=== PATIENT | female | born 1960 | race Caucasian/White ===

== ENCOUNTER → 2020-08-22 12:14 | Outpatient (CLI) | payer OTHER, SELFPAY ==
--- NOTE | ~2020-08-22 | MM_ITS ---
EXAMINATION: MM diagnostic may BI w meenu HISTORY: Status post right partial mastectomy for breast cancer TECHNIQUE: Bilateral ML, MLO and craniocaudal full field and right spot 3-D tomosynthesis images were performed and synthetic 2-D images were generated. CAD analysis was submitted and interpreted. COMPARISON: 05/11/2018 bilateral Limited ultrasound 04/28/2018bilateral breast MRI 04/17/2018 diagnostic right digital mammogram and limited right breast ultrasound 04/02/2018 bilateral digital screening BREAST PARENCHYMAL COMPOSITION: There are scattered areas of fibroglandular density. FINDINGS: There is postoperative scarring and overlying retraction in the upper outer quadrant of the right breast. Otherwise no interval suspicious mass or new architectural distortion or retraction or skin thickenin g is of either breast noted. There are scattered benign calcifications. IMPRESSION: 1. Status post right partial mastectomy for breast cancer; probable benign postoperative scarring of the upper outer quadrant of the right breast 2. 6 month follow-up diagnostic right mammogram is recommended. BI-RADS category 3, probably benign findings. Reviewed, dictated and finalized at location A. ING MACHINE OPERATOR IMPRESSION: 1. Status post right partial mastectomy for breast cancer; probable benign post operative scarring of the upper outer quadrant of the right breast 2. 6 month follow-up diagnostic right mammogram is recommended. BI-RADS category 3, probably benign findings.
== END ==
DX: C50.411 Malignant neoplasm of upper-outer quadrant of right female breast (principal)
CPT/HCPCS: 77062; 77066; G0279

== ENCOUNTER 2020-09-03 11:30 | Emergency (ER) | payer OTHER, SELFPAY ==
--- NOTE | 2020-09-03 11:38 | ED.FEMALEGU ---
HPI - Female Genitourinary General Chief complaint: Urogenital-Female Stated complaint: UTI Time Seen by Provider: 09/03/20 11:45 Source: patient and RN notes reviewed Mode of arrival: ambulatory Limitations: no limitations History of Present Illness HPI Narrative: 60-year-old female presents with concern for urinary tract infection. Reports symptoms started on Friday with dysuria, suprapubic pressure. Denies frequency, urgency, hematuria, flank pain, nausea, vomiting, diarrhea, fever. Reports mild left low back pain. Denies abnormal vaginal bleeding or discharge MD elicited complaint: UTI Related Data Home Medications Medication Instructions Recorded Confirmed alprazolam 0.25 mg PO DIRECTED 09/03/20 09/03/20 zolpidem 5 mg PO DAILY 09/03/20 09/03/20 Allergies Allergy/AdvReac Type Severity Reaction Status Date / Time No Known Allergies Allergy Unverified 09/03/20 11:38 Review of Systems Review of Systems: Narrative: CONSTITUTIONAL: Reports malaise. Denies chills, sweats, or fever. CARDIOVASCULAR: Denies chest pain, palpitations, or edema. RESPIRATORY: Denies cough or dyspnea. GASTROINTESTINAL: Denies abdominal pain, nausea, vomiting, diarrhea, bloody, or mucous stools. GENITOURINARY: Denies dysuria, suprapubic pressure. Denies frequency, urgency, flank pain, hematuria. MUSCULOSKELETAL: Reports mild left low back pain. Denies myalgia. NEUROLOGIC: Denies headache. All systems reviewed & are unremarkable except as noted in HPI and below PMFSH Comments At time of signature, agree with nursing past medical, surgical, social and family history. There is no relevant family history pertinent to the presenting complaint Exam Narrative: Exam Narrative: GENERAL: Well-appearing, well-nourished, and in no acute distress. HEAD: Normocephalic. EYES: PERRLA, conjunctivae clear. NECK: Supple. No lymphadenopathy CHEST: Clear to auscultation. No respiratory distress. HEART: Regular rate and rhythm. ABDOMEN: Soft, nontender upon palpation, nondistended, normal active bowel sounds, no palpable or pulsatile masses, no guarding. No CVA tenderness SKIN: Warm, dry, no rash. NEURO: Alert and oriented x3. PSYCH: Normal mood and affect Course Course Emergency Course: Patient is aware of diagnosis, understands and agrees to treatment plan. Anticipatory guidance given. Patient agrees to follow-up as directed and is aware of reasons to seek care at the emergency department. Portions of this record may have been created with voice recognition software Vital Signs Vital signs: Vital Signs Temperature 97.6 F 09/03/20 11:45 Pulse Rate 63 09/03/20 11:45 Respiratory Rate 16 09/03/20 11:45 Blood Pressure 165/91 H 09/03/20 11:45 Pulse Oximetry 100 09/03/20 11:45 Temperature 97.6 F 09/03/20 11:45 Pulse Rate 63 09/03/20 11:45 Respiratory Rate 16 09/03/20 11:45 Blood Pressure 165/91 H 09/03/20 11:45 Pulse Oximetry 100 09/03/20 11:45 Reviewed. Patient has history of hypertension MDM - Female Genitourinary MDM Narrative Medical decision making narrative: Exam findings and UA show no acute concerns or changes; patient is non-toxic appearing and is in no distress. Patient is appropriate for outpatient treatment and follow-up. Lab Data Attestation: I reviewed the patient's lab results. Labs: Urine Glucose Negative Reference Range: Negative Urine Bilirubin Negative Reference Range: Negative Urine Ketone Negative Reference Range: Negative Urine Specific [place] 1.010 Reference Range:1.001-1.035 Urine Blood 2+ Reference Range: Negative * *
[2020-09-03 11:45] VITALS: BP 165/91; PULSE 63; RESP 16; TEMP 36.4; O2SAT 100
== END 2020-09-03 11:56 | disposition home or self-care (01) ==
PROVIDERS: Emergency Provider Nurse Practitioner
DX: N39.0 Urinary tract infection, site not specified (principal); F41.9 Anxiety disorder, unspecified; Z85.3 Personal history of malignant neoplasm of breast
CPT/HCPCS: 81003; 87077; 87086; 87088; 87186; 99213; G0463

== ENCOUNTER → 2021-03-05 08:08 | Outpatient (CLI) | payer OTHER, SELFPAY ==
--- NOTE | ~2021-03-05 | MM_ITS ---
EXAMINATION: MM diagnostic may RT w meenu HISTORY: Right breast cancer TECHNIQUE: Craniocaudal, mediolateral, and mediolateral oblique 3-D tomosynthesis images of the right breast were performed and synthetic 2-D images were generated. CAD analysis was submitted and interp reted. COMPARISON: 08/22/2020, 07/23/2019, 07/10/2018, 04/17/2018, 04/06/2018 BREAST PARENCHYMAL COMPOSITION: There are scattered areas of fibroglandular density. FINDINGS: There are stable lumpectomy changes in the posterior third of the upper outer quadrant of t he breast. There is no evidence of suspicious mass, calcification, or architectural distortion to sug gest malignancy. There has been no suspicious interval change. IMPRESSION: 1. No mammographic evidence of malignancy. 2. Recommend routine screening mammography in one year. BI-RADS Category 2: Benign finding(s). Reviewed, dictated and finalized at location A.
== END ==
PROVIDERS: PCP Internal Medicine; Visit Provider Physician Assistant Medical
DX: C50.411 Malignant neoplasm of upper-outer quadrant of right female breast (principal)
CPT/HCPCS: 77061; 77065; G0279

== ENCOUNTER → 2021-11-27 16:02 | Outpatient (CLI) | payer OTHER, SELFPAY ==
--- NOTE | ~2021-11-27 | MM_ITS ---
EXAMINATION: MM screening [facility] BI w meenu HISTORY: Screening mammogram, history of right breast cancer TECHNIQUE: Craniocaudal and mediolateral oblique 3-D tomosynthesis images were obtained and synthetic 2-D images were generated. CAD analysis was submitted and interpreted. COMPARISON: 03/05/2021, 08/22/2020, 07/23/2019 BREAST PARENCHYMAL COMPOSITION: There are scattered areas of fibroglandular density. FINDINGS: There are stable lumpectomy changes in the upper outer quadrant of the right breast. There is also a stable mass of the inner left breast. There is no suspicious mass, calcification, or teri ectural distortion to suggest malignancy in either breast. There has been no suspicious interval stev[place] [facility]. IMPRESSION: 1. No mammographic evidence of malignancy. 2. Recommend routine screening mammography in one year. BI-RADS Category 2: Benign finding(s). Reviewed, dictated and finalized at location A.
== END ==
PROVIDERS: PCP Internal Medicine; Visit Provider Physician Assistant Medical
DX: Z12.31 Encounter for screening mammogram for malignant neoplasm of breast (principal)
CPT/HCPCS: 77063; 77067

== ENCOUNTER → 2022-12-18 16:56 | Outpatient (CLI) | payer OTHER, SELFPAY ==
--- NOTE | ~2022-12-18 | MM_ITS ---
EXAMINATION: MM screening [facility] BI w meenu HISTORY: Screening mammogram. Prior history of right breast lumpectomy and radiation therapy. TECHNIQUE: Craniocaudal and mediolateral oblique 3-D tomosynthesis images were obtained and synthetic 2-D images were generated. CAD analysis was submitted and interpreted. COMPARISON: 11/27/2021, 03/05/2021, 08/22/2020, 07/23/2019, 07/10/2018 BREAST PARENCHYMAL COMPOSITION:There are scattered areas of fibroglandular density. FINDINGS: There is stable post lumpectomy changes with dystrophic calcification at the upper, outer r ight breast. No suspicious mass, calcification, or architectural distortion are identified in either breast to suggest malignancy. There has been no suspicious interval change. IMPRESSION: No mammographic evidence of malignancy. Stable postlumpectomy change at the upper, outer right breast. Recommend routine screening mammography in one year. BI-RADS Category 2: Benign finding(s). Reviewed, dictated and finalized at [facility].
== END ==
PROVIDERS: PCP Physician Assistant Medical; Visit Provider Physician Assistant Medical
DX: Z12.31 Encounter for screening mammogram for malignant neoplasm of breast (principal)
CPT/HCPCS: 77063; 77067

== ENCOUNTER 2024-02-13 12:08 | Outpatient (CLI) | payer OTHER, SELFPAY ==
--- NOTE | ~2024-02-13 | MM_ITS ---
EXAMINATION: MM screening [facility] BI w meenu HISTORY: Screening TECHNIQUE: Craniocaudal and mediolateral oblique 3-D tomosynthesis images were obtained and synthetic 2-D images were generated. CAD analysis was submitted and interpreted. COMPARISON: 07/10/2018 BREAST PARENCHYMAL COMPOSITION: There are scattered areas of fibroglandular density. FINDINGS: Stable architectural distortion upper outer quadrant of the right breast, consistent with p revious lumpectomy site for breast cancer. There is no evidence of suspicious mass, calcification, or architectural distortion to suggest malignancy in either breast. There has been no suspicious interv al change. IMPRESSION: 1. No mammographic evidence of malignancy. 2. Recommend routine screening mammography in one year. BI-RADS CATEGORY 2 - BENIGN FINDINGS Reviewed, dictated and finalized at location B.
== END 2024-02-13 12:09 ==
LOC: MICIMG 12:09
PROVIDERS: PCP Physician Assistant Medical; Visit Provider Physician Assistant Medical
DX: Z12.31 Encounter for screening mammogram for malignant neoplasm of breast (principal)
CPT/HCPCS: 77063; 77067

== ENCOUNTER 2024-04-03 13:48 | Emergency (ER) | payer OTHER, SELFPAY ==
--- NOTE | ~2024-04-03 | XR_ITS ---
XR ankle RT min 3V DATE: 04/03/2024 14:06 INDICATION: Fall. Pain. TECHNIQUE: 4 views COMPARISON: None FINDINGS: Virtually nondisplaced linear oblique fracture of the distal fibular diametaphysis. No other fracture or dislocation. The ankle mortise is intact. IMPRESSION: Virtually nondisplaced linear oblique fracture of the distal fibular diametaphysis Reviewed, dictated and finalized at location A. IMPRESSION: Virtually nondisplaced linear oblique fracture of the distal fibula r diametaphysis
[2024-04-03 13:51] VITALS: BP 151/86; PULSE 75; RESP 18; TEMP 36.8; O2SAT 98
--- NOTE | 2024-04-03 14:58 | ED.FALL ---
HPI - Fall General Chief Complaint: Fall Stated Complaint: fall Time Seen by Provider: 04/03/24 14:14 History of Present Illness HPI Narrative: Patient is a 63-year-old female who presents to the emergency department this afternoon complaining of right ankle pain. Patient states that she missed a step and rolled her right ankle as she was falling. Patient denies hitting her head and denies any blood thinner use. States that she was able to get back up and ambulate with a little bit of assistance. Patient complains of pain along her right lateral malleoli. Denies any numbness and/or tingling. No additional symptoms or concerns at this time. Related Data Home Medications Medication Instructions Recorded Confirmed alprazolam 0.25 mg tablet 0.25 mg PO DIRECTED 09/03/20 09/03/20 zolpidem 5 mg tablet 5 mg PO DAILY 09/03/20 09/03/20 Allergies Allergy/AdvReac Type Severity Reaction Status Date / Time No Known Allergies Allergy Verified 04/03/24 14:56 Review of Systems Review of Systems: All systems are reviewed and are negative unless stated otherwise in the HPI. Exam Narrative: General: Alert, awake, afebrile, in no acute distress. HEENT: PERRL, no rhinorrhea, no post nasal drip, oropharynx clear. Cardiovascular: Regular rate and rhythm, no murmurs, rubs or gallops, no peripheral edema. Respiratory: Clear to auscultation bilaterally, no tachypnea, no wheezing, no rhonchi, no rubs, no respiratory distress. Abdomen: Soft, nontender, nondistended, no rebound, no guarding, no peritoneal signs. Musculoskeletal: Right ankle swelling and tenderness to palpation noted along the right lateral malleolus, no tenderness to palpation mid torso, no tenderness to palpation over the midfoot, no tenderness to palpation over the proximal fibula, intact DP pulse, unable to palpate PT pulses secondary to swelling. Skin: No rashes or petechia, no signs of infection. Neurological: Alert and oriented to person, place, and time. Follows all commands. No focal deficits, speech is clear and fluent. Course Vital Signs Vital signs: Vital Signs Temperature 98.3 F 04/03/24 13:51 Pulse Rate 75 04/03/24 13:51 Respiratory Rate 18 09/21/24 13:51 Blood Pressure 151/86 H 04/03/24 13:51 Pulse Oximetry 98 04/03/24 13:51 Temperature 98.4 F 04/03/24 16:00 Pulse Rate 82 04/03/24 16:00 Respiratory Rate 16 04/03/24 16:00 Blood Pressure 139/69 04/03/24 16:00 Pulse Oximetry 98 04/03/24 16:00 MDM - Fall MDM Narrative Medical decision making narrative: The patient was evaluated by myself in the emergency department. History is obtained from patient who is an independent historian and physical exam was performed. External medical records were reviewed at this time. Patient was administered an oral [place] 7.5-325 mg for pain. Imaging studies obtained included right ankle x-ray which was independently interpreted by me revealing a nondisplaced linear oblique fracture of the distal fibular diametaphysis, which is pending final radiology interpretation. At this time patient was informed of these findings and she will be placed on a splint to immobilize her right ankle and that she will be provided with crutches for nonweightbearing. Patient was placed on posterior short leg with stirrup. Differential diagnosis considerations include fractures, dislocation, musculoskeletal strain. Comorbidities impacting this visit include none. I have evaluated and discussed social determinants of health with the patient that could potentially impact subsequent diagnosis and treatment plans. On repeat assessment of the patient, reevaluation revealed that the patient is doing well and is in no acute distress. Patient symptoms have improved since she arrived to our emergency department. Repeat vital signs were all reviewed and noted to be stable. Differential diagnosis and treatment plan were discussed with the patient
[2024-04-03] MEDS: HYDROcodone/acetaminophen (*CRX) 7.5-325 MG TABLET 1 TAB PO (15:23)
[2024-04-03 16:00] VITALS: BP 139/69; PULSE 82; RESP 16; TEMP 36.9; O2SAT 98
== END 2024-04-03 16:02 | disposition home or self-care (01) ==
PROVIDERS: Emergency Provider Emergency Medicine; PCP Internal Medicine
DX: S89.391A Other physeal fracture of lower end of right fibula, initial encounter for closed fracture (principal); W10.9XXA Fall (on) (from) unspecified stairs and steps, initial encounter; X50.9XXA Other and unspecified overexertion or strenuous movements or postures, initial encounter
CPT/HCPCS: 29515; 73610; 99284; A9270

== ENCOUNTER 2024-04-26 23:46 | Emergency (ER) | payer OTHER, SELFPAY ==
--- NOTE | ~2024-04-26 | XR_ITS ---
Portable chest x-ray Comparison: None Clinical History: Chest pain Findings: Possible minimal right pleural effusion. Possible mild hazy opacity right upper lobe. Car diomediastinal silhouette is unremarkable. Bones and soft tissues are unremarkable. Impression: Probable minimal right pleural effusion. Questionable mild hazy opacity right upper lobe. Subtle pneumonia is a consideration. Reviewed, dictated and finalized at [facility]. Impression: Probable minimal right pleural effusion. Questionable mild hazy opacity right upper lobe. Subtle pneumonia is a consider ation.
--- NOTE | ~2024-04-26 | CT_ITS ---
Clinical Indication: Pulmonary embolus CT Scan of the Chest with Contrast: Technique: Contiguous sections were acquired throughout the chest after intravenous administration of 100 cc of Omnipaque 350. Dose reduction technique was used on this scan by utilizing automated expos ure control and iterative reconstruction technique. The dose-length product (DLP) was 624.41 mGy-cm. Findings: There is no evidence of any significant mediastinal, hilar or axillary lymphadenopathy. There is a ve ry large pulmonary embolus within the right main pulmonary artery, extending into the right lobar lev el pulmonary artery as well as segmental branches. Sagittal embolus extends across the main pulmonary bifurcation into the left main pulmonary artery, with extension into the left lower lobar pulmonary artery and segmental branches. There is additional extension to the left upper lobar pulmonary artery and segmental branches. There is reversal of the LV-RV ratio, suggestive of right heart strain. Ther e is no evidence of aortic dissection or aneurysm. No pericardial effusion. Small right pleural effusion present. No left pleural effusion. There is area of groundglass consolidation the right lower lobe. Left lung essentially clear. Images through the upper abdomen reveal no abnormalities. Impression: Extensive saddle pulmonary embolus, as detailed above. Findings compatible with associated right hear t strain. Area of groundglass consolidation right lower lobe, likely representing pulmonary infarct given the a nhan findings. Correlate for pneumonia. Small right pleural effusion. Reviewed, dictated and finalized at [facility]. Impression: Extensive saddle pulmonary embolus, as detailed above. Findings compatible with associated right heart strain. Area of groundglass consolidation right lower lobe, likely representing pulmona ry infarct given the above findings. Correlate for pneumonia. Small right pleural effusion.
[2024-04-27] VITALS: BP 143/91; PULSE 91; RESP 14; TEMP 36.3; O2SAT 100
--- NOTE | 2024-04-27 00:04 | ED.GENADULT ---
[facility] - General Adult General Chief complaint: Unspecified Stated complaint: rib pain, shoulder pain Time Seen by Provider: 04/26/24 23:58 History of Present Illness HPI narrative: 63-year-old female with a past medical history significant for breast cancer status post lumpectomy and chemotherapy. In remission since 2018. 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 She recently fractured her ankle several weeks prior and is being treated conservatively in outpatient therapy with her orthopedic surgeon Dr. Palmer. She presents to the emergency department today with 2 days of sharp right-sided chest pain underneath her breast going towards her back. She states that her state deep breath. No left-sided chest discomfort, nausea, vomiting, fever, chills, abdominal pain, headache, vision changes. She was otherwise in her normal state of health and has been more sedentary lately secondary to the broken ankle. She has been using crutches for ambulation and thinks that could be related to overuse of her upper extremity and crutches under armpit. She denies any paresthesias in the arms or legs. Endorses some swelling in the right ankle that is improved from when she fractured it. Related Data Home Medications Medication Instructions Recorded Confirmed alprazolam 0.25 mg tablet 0.25 mg PO DIRECTED 09/03/20 04/05/24 zolpidem 5 mg tablet 5 mg PO DAILY 09/03/20 04/05/24 Allergies Allergy/AdvReac Type Severity Reaction Status Date / Time No Known Allergies Allergy Verified 04/05/24 15:07 Review of Systems Review of Systems: as reviewed above in [facility] Social History Social History Smoking status: Never smoker Exam Narrative: GENERAL: [Well-appearing, well-nourished, and in no acute distress.] HEAD: [Normocephalic, atraumatic.] EYES: [PERRLA and EOMI.] ENT: Nares clear, no rhinorrhea or epistaxis. Mucous membranes moist. NECK: Supple. CHEST: [Clear to auscultation. No respiratory distress.] HEART: [Regular rate and rhythm]. No murmur heard. [Normal peripheral pulses.] ABDOMEN: [Soft, nondistended], [nontender], [No rigidity or guarding] EXTREMITIES: cam boot in place into the right lower extremity with some mild swelling around the knee but no pitting edema. Tenderness to palpation is reproducible in the chest wall especially underneath the right breast but no step-off deformities or lesions. No midline back pain. SKIN: Warm, dry, no rash. NEURO: [No focal deficits]. Alert and oriented [x3.] PSYCH: [Normal mood and affect.] Course Vital Signs Vital signs: Vital Signs Temperature 36.3 C L 04/27/24 00:00 Pulse Rate 91 04/27/24 00:00 Respiratory Rate 14 04/27/24 00:00 Blood Pressure 143/91 H 04/27/24 00:00 Pulse Oximetry 100 04/27/24 00:00 Temperature 36.3 C L 04/27/24 00:00 Pulse Rate 74 04/27/24 00:14 Respiratory Rate 14 04/27/24 00:00 Blood Pressure 143/91 H 04/27/24 00:00 Pulse Oximetry 93 04/27/24 00:14 Oxygen Delivery Room Air 04/27/24 00:14 Medical Decision Making [facility] Narrative Medical decision making narrative: 63-year-old female presenting to the emergency depart with right-sided chest pain that starts underneath her breast and radiates towards her back. Was nontraumatic in nature. She has significant history including breast cancer in remission, history of super fetus venous thrombosis, recent fracture right ankle without any operative repair. She does meet wells criteria for high risk DVT and PE features. Cardiac etiology is less likely but still of concern. Low risk for infectious pathology such as pneumonia or spontaneous pneumothorax. Workup was initiated including x-ray, EKG, cardiac workup with troponins and a dimer. She was treated with Toradol for analgesia. Will re-evaluate after symptom control and laboratory assessment. patient's labo
--- NOTE | 2024-04-27 00:08 | ECG_ITS ---
Test Date: 2024-04-27 00:08:26 Measurements Intervals [place] Rate: 75 P: 66 ND: 149 QRS: -20 QRSD: 90 T: 18 QT: 389 QTc: 434 Interpretive Statements SINUS RHYTHM No previous ECG available for comparison Electronically Signed On 04-27-2024 12:21:43 CDT by Samira Brumfield M.D.
[2024-04-27] MEDS: KETOROLAC 30 MG/ML VIAL (*BKC) IV PUSH (00:09)
[2024-04-27 00:14] VITALS: PULSE 74; O2SAT 93
[2024-04-27 00:16] LABS: Basophils Percent Auto 0.3 % (0.2-1.2); Eosinophils Absolute Auto 0.1 K/mm3 (0-0.3); Hematocrit 41.8 % (37.0-47.0); Hemoglobin 14.1 g/dL (12.0-15.0); Immature Granulocyte Absolute 0.04 K/mm3 (0.00-0.031); Immature Granulocyte Percent A 0.4 % (0-0.5); Lymphocytes Absolute Auto 1.65 K/mm3 (0.9-3.2); Lymphocytes Percent Auto 16.7 % (18.3-44.2); Mean Corpuscular HGB Conc 33.7 g/dl (32-36); Mean Corpuscular Hemoglobin 30.9 pg (26-34); Mean Corpuscular Volume 91.7 fl (80-100); Mean Platelet Volume 10.1 fl (7.4-10.4); Monocytes Absolute Auto 0.7 K/mm3 (0.1-0.6); Monocytes Percent Auto 7.5 % (2.6-8.5); Neutrophils Absolute Auto 7.3 K/mm3 (1.3-6.7); Neutrophils Percent Auto 74.1 % (45.5-73.1); Platelet Count Result 248 k/mm3 (150-375); Red Blood Count 4.56 M/mm3 (4.2-5.4); Red Cell Distribution Width 12.5 % (11.5-14.5); White Blood Count 9.9 K/mm3 (4.5-10.0)
[2024-04-27 00:25] LABS: Alanine Aminotransferase 14 U/L (6-35); Albumin Level 4.5 g/dL (3.5-5.1); Alkaline Phosphatase 115 U/L (38-126); Anion Gap 12 mmol/L (4-12); Aspartate Amino Transferase 24 U/L (14-36); Bilirubin,Total 1.3 mg/dL (0.2-1.3); Blood Urea Nitrogen 9 mg/dL (7-17); Calcium 9.5 mg/dL (8.4-10.2); Carbon Dioxide 26 mmol/L (22-30); Chloride 100 mmol/L (98-107); Estimated CRCL calculation 52 ml/min; Estimated Glomerular Filt Rate 50; Glucose 135 mg/dL (65-110); Potassium 3.7 mmol/L (3.4-5.0); Sodium 138 mmol/L (137-145)
[2024-04-27 00:28] LABS: INR 1.1; Prothrombin Time 14.1 Seconds (11.1-14.7)
[2024-04-27 00:37] LABS: Troponin I < 0.012 ng/mL (0.000-0.034)
[2024-04-27 00:39] LABS: D Dimer 5.46 ug/mL (<0.48)
[2024-04-27] MEDS: MORPHINE SULFATE (*CRX) 4 MG/ML INJ IV PUSH (01:44)
[2024-04-27] MEDS: HEPARIN SOD/D5W 100 UNITS/ML 25,000 UNITS/250 ML BAG 13 UNITS IV CONT (01:44)
[2024-04-27 01:45] LABS: Basophils Percent Auto 0.2 % (0.2-1.2); Eosinophils Absolute Auto 0.1 K/mm3 (0-0.3); Eosinophils Percent Auto 0.8 % (0-4.4); Hematocrit 36.1 % (37.0-47.0); Hemoglobin 12.1 g/dL (12.0-15.0); Immature Granulocyte Absolute 0.02 K/mm3 (0.00-0.031); Immature Granulocyte Percent A 0.2 % (0-0.5); Lymphocytes Absolute Auto 1.32 K/mm3 (0.9-3.2); Lymphocytes Percent Auto 15.2 % (18.3-44.2); Mean Corpuscular HGB Conc 33.5 g/dl (32-36); Mean Corpuscular Hemoglobin 30.6 pg (26-34); Mean Corpuscular Volume 91.2 fl (80-100); Monocytes Absolute Auto 0.7 K/mm3 (0.1-0.6); Monocytes Percent Auto 7.5 % (2.6-8.5); Neutrophils Absolute Auto 6.6 K/mm3 (1.3-6.7); Neutrophils Percent Auto 76.1 % (45.5-73.1); Platelet Count Result 226 k/mm3 (150-375); Red Blood Count 3.96 M/mm3 (4.2-5.4); Red Cell Distribution Width 12.5 % (11.5-14.5); White Blood Count 8.7 K/mm3 (4.5-10.0)
[2024-04-27] MEDS: HEPARIN SODIUM 5,000 UNITS/ML VIAL 5500 UNITS IV PUSH (01:45)
[2024-04-27 01:57] LABS: INR 1.1; Prothrombin Time 14.5 Seconds (11.1-14.7)
[2024-04-27 01:58] LABS: Partial Thromboplastin Time 32.3 Seconds (22.3-36.8)
[2024-04-27 02:02] VITALS: BP 135/68; PULSE 62; RESP 15; O2SAT 99
[2024-04-27 02:52] VITALS: BP 125/63; PULSE 76; RESP 15; O2SAT 99
== END 2024-04-27 02:54 | disposition short-term general hospital (02) ==
PROVIDERS: Emergency Provider Student in an Organized Health Care Education/Training Program; PCP Internal Medicine
DX: I26.92 Saddle embolus of pulmonary artery without acute cor pulmonale (principal); Z85.3 Personal history of malignant neoplasm of breast; Z92.21 Personal history of antineoplastic chemotherapy; Z86.718 Personal history of other venous thrombosis and embolism; R91.8 Other nonspecific abnormal finding of lung field
CPT/HCPCS: 36415; 71045; 71275; 80053; 84484; 85025; 85380; 85610; 85730; 93005; 96365; 96375; 99285; J1644; J1885; J2270; Q9967

== ENCOUNTER 2024-05-03 10:03 | Outpatient (CLI) | payer OTHER, SELFPAY ==
--- NOTE | ~2024-05-03 | XR_ITS ---
Right ankle Technique: AP, oblique, and lateral views were obtained. Clinical History: Fracture COMPARISON: 04/03/2024 Findings: Oblique fracture the distal fibula is essentially unchanged from prior exam. Stable alignme nt. No new fracture seen.. Soft tissues are otherwise unremarkable. Impression: Stable oblique, minimally displaced fracture of the distal fibula. Reviewed, dictated and finalized at location . Impression: Stable oblique, minimally displaced fracture of the distal fibula.
== END 2024-05-03 10:04 | disposition home or self-care (01) ==
PROVIDERS: PCP Internal Medicine; Visit Provider Orthopaedic Surgery
DX: S82.64XD Nondisplaced fracture of lateral malleolus of right fibula, subsequent encounter for closed fracture with routine healing (principal); X58.XXXD Exposure to other specified factors, subsequent encounter
CPT/HCPCS: 73610